=== PATIENT | male | born 1980 | race Caucasian/White ===

== ENCOUNTER → 2020-02-29 | Outpatient (CLI) | payer BC | END | disposition home or self-care (01) | LOC: LABWHC1 17:00 | PROVIDERS: ATTEND Emergency Medicine | DX: Z20.828 Contact with and (suspected) exposure to other viral communicable diseases (principal) | CPT/HCPCS: U0003; C9803 ==

== ENCOUNTER → 2024-01-20 | Outpatient (CLI) | payer OTHER ==
--- NOTE | 2024-01-20 16:49 | XR ---
EXAMINATION TYPE: XR ankle complete 3 views LT, XR tibia fibula 2 views LT, XR foot complete 3 views LT DATE OF EXAM: 01/20/2024 Comparison: None Clinical History: 43-year-old male with pain after FELL AT WORK and twisting injury Findings: Tibia/fibula: No acute fracture of the more proximal to mid tibia or fibula. Ankle: There is lateral soft tissue swelling. Ankle mortise is congruent with preservation of the distal tib ia-fibula overlap. Talar dome is intact. Small to moderate sized plantar and small posterior calcanea l spurs. Subtalar joint align. No acute fracture, subluxation, dislocation. Left foot: No acute fracture, subluxation, dislocation. Impression: 1. Tibia/fibula: No acute osseous abnormality seen. 2. Left ankle: Some lateral soft tissue swelling. No underlying acute osseous abnormality seen. 3. Left foot: Posterior and plantar heel spurs. No acute osseous abnormality seen. [facility], , 01/20/2024 4:47 PM
== END | disposition home or self-care (01) ==
LOC: RADXRMAIN 16:11
PROVIDERS: ATTEND Emergency Medicine